=== PATIENT | female | born 1980 | race African-American/Black ===

== ENCOUNTER 2023-02-20 16:05 | Inpatient (IN) | payer MEDICAID, OTHER ==
[~2023-02-20] VITALS: Ht 1889.8 cm; Wt 136.1 kg
[2023-02-20 16:25] VITALS: O2SAT 100
[2023-02-20] MEDS ORDERED: METH10TA80 PO (16:40)
[2023-02-20] MEDS ORDERED: METO25TA6 PO (16:40)
[2023-02-20] MEDS ORDERED: GABA800T11 PO (16:40)
[2023-02-20] MEDS ORDERED: DULA1.5P SQ (16:40)
[2023-02-20] MEDS ORDERED: INSU100I26 SQ (16:40)
[2023-02-20] MEDS ORDERED: GLIP10TA11 PO (16:40)
[2023-02-20] MEDS ORDERED: ASPI81TA31 PO (16:40)
[2023-02-20] MEDS ORDERED: ATOR40TA PO (16:40)
[2023-02-20] MEDS ORDERED: APIX5TAB4 PO (16:40)
[2023-02-20] MEDS ORDERED: LEVE500T9 PO (16:40)
[2023-02-20] MEDS ORDERED: INSU100C SQ (16:42)
[2023-02-20 17:13] LABS: BASOPHILS % (AUTO) 0.3 % (0.0-2.0); EOSINOPHILS # (AUTO) 0.1 K/uL (0.0-0.7); EOSINOPHILS % (AUTO) 0.7 % (0.0-7.0); HEMATOCRIT 28.6 % (31.2-41.9); HEMOGLOBIN 8.2 g/dL (10.9-14.3); LYMPHOCYTES # (AUTO) 1.5 K/uL (0.8-4.8); LYMPHOCYTES % (AUTO) 18.4 % (20.5-51.5); MEAN CORPUSCULAR HGB CONC 29 g/dL (32.3-35.6); MEAN CORPUSCULAR VOLUME 59.3 fL (75.5-95.3); MONOCYTES # (AUTO) 0.6 K/uL (0.1-1.30); MONOCYTES % (AUTO) 7.2 % (0.0-11.0); NEUTROPHILS % (AUTO) 73.4 % (38.5-71.5); PLATELET COUNT (AUTO) 471 K/uL (179-408); RED BLOOD CELL COUNT(AUTO) 4.83 MIL/uL (3.63-4.92); RED CELL DISTRIBUTION WIDTH 20.7 % (12.3-17.7); WHITE BLOOD COUNT (AUTO) 8.2 K/uL (3.8-11.8)
[2023-02-20 17:19] LABS: DIFFERENTIAL COMMENT 1
[2023-02-20 17:44] LABS: ALANINE AMINOTRANSFERASE 16 U/L (14-59); ALBUMIN 2.9 g/dL (3.4-5.0); ALKALINE PHOSPHATASE 85 U/L (50-136); ASPARTATE AMINOTRANSFERASE 8 U/L (15-37); BILIRUBIN,DIRECT 0.1 mg/dL (0.0-0.2); BILIRUBIN,TOTAL 0.2 mg/dL (0.2-1.0); CARBON DIOXIDE 24 mmol/L (21-32); CHLORIDE 105 mmol/L (98-107); CREATININE 0.6 mg/dL (0.6-1.3); GLUCOSE 231 mg/dL (74-106); NT-PRO BNP 1150 pg/mL (0-125); SODIUM SERUM 139 mmol/L (136-145); TOTAL PROTEIN, SERUM 7.2 g/dL (6.4-8.2); UREA NITROGEN, BLOOD 8 mg/dL (7-18)
[2023-02-20 18:11] LABS: LYMPHOCYTES % (MANUAL) 20 % (20-40); MONOCYTES % (MANUAL) 5 % (2-10); NEUTROPHILS % (MANUAL) 75 % (42-75)
[2023-02-20 18:12] LABS: ANISOCYTOSIS 2+; HYPOCHROMASIA 3+; PLATELET ESTIMATE ADEQUATE
[2023-02-20] MEDS ORDERED: HYDROCODONE/APAP 5-325MG TABLET PO PRN (18:15)
[2023-02-20] MEDS ORDERED: MORPHINE SULFATE 2 MG/1 ML DISP.SYRIN IV PRN (18:15)
[2023-02-20] MEDS ORDERED: MAGNESIUM HYDROXIDE 30 ML LIQUID UDC PO PRN (18:15)
[2023-02-20] MEDS ORDERED: REMEDY ESSENTIAL ZINC PASTE 113 GM TP PRN (18:15)
[2023-02-20] MEDS ORDERED: INSULIN REGULAR, HUMAN 300 UNIT/3 ML VIAL SQ PRN (18:15)
[2023-02-20] MEDS ORDERED: ACETAMINOPHEN 325 MG TABLET PO PRN (18:15)
[2023-02-20] MEDS ORDERED: DEXTROSE 50% 50 ML DISP.SYRIN IV PRN (18:15)
[2023-02-20] MEDS ORDERED: ONDANSETRON 4 MG/2 ML VIAL IV PRN (18:15)
[2023-02-20] MEDS ORDERED: TEMAZEPAM 15 MG CAPSULE PO PRN (18:15)
[2023-02-20] MEDS ORDERED: INSULIN GLARGINE,HUM 300 UNITS/3 ML CARTRIDGE SQ SCH (21:00)
[2023-02-20] MEDS: APIXABAN 5 MG TABLET PO SCH (21:16)
[2023-02-20] MEDS: BLOOD SUGAR DIAGNOSTIC 1 EACH STRIP VI SCH (21:29)
[2023-02-20] MEDS ORDERED: INSULIN GLARGINE,HUM 300 UNITS/3 ML CARTRIDGE SQ ONE (21:32)
[2023-02-21] MEDS ORDERED: MORPHINE SULFATE 2 MG/1 ML DISP.SYRIN IV PRN (06:18)
[2023-02-21 06:45] LABS: BASOPHILS % (AUTO) 0.2 % (0.0-2.0); EOSINOPHILS # (AUTO) 0.1 K/uL (0.0-0.7); EOSINOPHILS % (AUTO) 1.1 % (0.0-7.0); HEMATOCRIT 26.5 % (31.2-41.9); HEMOGLOBIN 7.8 g/dL (10.9-14.3); LYMPHOCYTES # (AUTO) 1.4 K/uL (0.8-4.8); MEAN CORPUSCULAR HEMOGLOBIN 17.5 uug (24.7-32.8); MEAN CORPUSCULAR HGB CONC 30 g/dL (32.3-35.6); MEAN CORPUSCULAR VOLUME 59.2 fL (75.5-95.3); MONOCYTES # (AUTO) 0.7 K/uL (0.1-1.30); MONOCYTES % (AUTO) 8.5 % (0.0-11.0); NEUTROPHILS # (AUTO) 6.1 K/uL (1.8-8.9); NEUTROPHILS % (AUTO) 73.2 % (38.5-71.5); PLATELET COUNT (AUTO) 450 K/uL (179-408); RED BLOOD CELL COUNT(AUTO) 4.47 MIL/uL (3.63-4.92); RED CELL DISTRIBUTION WIDTH 20.2 % (12.3-17.7); WHITE BLOOD COUNT (AUTO) 8.3 K/uL (3.8-11.8)
[2023-02-21] MEDS ORDERED: PANTOPRAZOLE SODIUM 40 MG TABLET.DR PO ONE (06:50)
[2023-02-21 06:56] LABS: DIFFERENTIAL COMMENT 1
[2023-02-21 07:09] LABS: CARBON DIOXIDE 26 mmol/L (21-32); CHLORIDE 107 mmol/L (98-107); CHOLESTEROL 147 mg/dL (<200); CREATININE 0.6 mg/dL (0.6-1.3); GLUCOSE 148 mg/dL (74-106); HDL CHOLESTEROL 45 mg/dL (40-60); MAGNESIUM 1.7 mg/dL (1.8-2.4); PHOSPHOROUS 4.3 mg/dL (2.5-4.9); SODIUM SERUM 142 mmol/L (136-145); TRIGLYCERIDES 92 MG/DL (30-150); UREA NITROGEN, BLOOD 6 mg/dL (7-18)
[2023-02-21 07:10] LABS: THYROID STIMULATING HORMONE < 0.007 mIU/mL (0.358-3.740)
[2023-02-21] MEDS: PANTOPRAZOLE SODIUM 40 MG TABLET.DR PO SCH ×2 (07:26→07:32)
[2023-02-21] MEDS: BLOOD SUGAR DIAGNOSTIC 1 EACH STRIP VI SCH ×2 (07:40→11:55)
[2023-02-21] MEDS ORDERED: GABAPENTIN 400 MG CAPSULE ONE (08:18)
[2023-02-21] MEDS ORDERED: ASPIRIN 81 MG TAB.CHEW ONE (08:19)
[2023-02-21] MEDS: APIXABAN 5 MG TABLET PO SCH (08:26)
[2023-02-21 08:29] VITALS: BP 126/93
[2023-02-21] MEDS ORDERED: glipiZIDE 10 MG TABLET PO SCH (09:00)
[2023-02-21] MEDS ORDERED: ASPIRIN 81 MG TAB.CHEW PO SCH (09:00)
[2023-02-21] MEDS ORDERED: GABAPENTIN 400 MG CAPSULE PO SCH (09:00)
[2023-02-21] MEDS ORDERED: MAGNESIUM OXIDE 400 MG TABLET PO ONE ×2 (09:00→09:45)
[2023-02-21] MEDS ORDERED: METOPROLOL TARTRATE 25 MG TABLET PO SCH (09:00)
[2023-02-21] MEDS ORDERED: METHIMAZOLE 5 MG TABLET PO SCH ×2 (09:00→17:00)
[2023-02-21] MEDS ORDERED: levETIRAcetam 500 MG TABLET PO SCH ×2 (09:00→11:00)
[2023-02-21] MEDS ORDERED: FUROSEMIDE 40 MG/4 ML VIAL IV SCH (09:00)
[2023-02-21] MEDS ORDERED: METHIMAZOLE 5 MG TABLET PO ONE (09:00)
[2023-02-21] MEDS ORDERED: MAGNESIUM OXIDE 400 MG TABLET ONE (09:23)
[2023-02-21] MEDS ORDERED: METO-358 PO (09:23)
[2023-02-21] MEDS ORDERED: METO25TA6 PO (10:17)
[2023-02-21] MEDS ORDERED: ACETAMINOPHEN 325 MG TABLET ONE (11:12)
[2023-02-21] MEDS ORDERED: ATORVASTATIN 40 MG TABLET PO SCH ×2 (18:00→21:00)
[2023-02-22] MEDS ORDERED: METHIMAZOLE 5 MG TABLET PO SCH (21:00)
[2023-02-22] MEDS ORDERED: MAGNESIUM OXIDE 400 MG TABLET PO SCH (21:00)
== END 2023-02-21 13:05 | disposition left against medical advice (07) | DRG 194 ==
LOC: ER 16:05 → TRANSITION 18:41
PROVIDERS: ADMIT Nurse Practitioner Acute Care; ATTEND Internal Medicine
DX: I11.0 Hypertensive heart disease with heart failure (principal); E11.42 Type 2 diabetes mellitus with diabetic polyneuropathy; D50.9 Iron deficiency anemia, unspecified; E03.9 Hypothyroidism, unspecified; Z79.01 Long term (current) use of anticoagulants; I48.91 Unspecified atrial fibrillation; E66.01 Morbid (severe) obesity due to excess calories; G40.909 Epilepsy, unspecified, not intractable, without status epilepticus; I50.23 Acute on chronic systolic (congestive) heart failure; E78.5 Hyperlipidemia, unspecified; Z79.4 Long term (current) use of insulin; Z79.82 Long term (current) use of aspirin; Z79.899 Other long term (current) drug therapy; Z79.84 Long term (current) use of oral hypoglycemic drugs; R05.9 Cough, unspecified; Z53.29 Procedure and treatment not carried out because of patient's decision for other reasons
CPT/HCPCS: 36415; 70030-TC; 71045; 83735; 84100; 84443; 84484; 85025; 85730; 93005; 93307; G0378; J1815